=== PATIENT | female | born 1955 | race Caucasian/White ===

== ENCOUNTER 2016-08-19 15:38 | Inpatient (IN) | payer MEDICARE, BC ==
[~2016-08-19] VITALS: Ht 160 cm; Wt 87.1 kg
[2016-08-19 16:00] VITALS: BP 111/69
[2016-08-19] MEDS ORDERED: MAG30ORA PO (16:00)
[2016-08-19] MEDS ORDERED: ACET-868 PO (16:00)
[2016-08-19] MEDS ORDERED: PROG100C3 PO (16:05)
[2016-08-19] MEDS ORDERED: METF500T7 PO (16:05)
[2016-08-19] MEDS ORDERED: ESTR0.5T PO (16:05)
[2016-08-19] MEDS ORDERED: FLUO15CR12 TP (16:05)
[2016-08-19] MEDS ORDERED: MAGN400O6 PO (16:05)
[2016-08-19] MEDS ORDERED: LISI-603 PO (16:05)
[2016-08-19] MEDS ORDERED: TOPI-67 PO (16:05)
[2016-08-19] MEDS ORDERED: IBUP-1481 PO (16:05)
[2016-08-19] MEDS ORDERED: DIAZ5TAB4 PO (16:05)
[2016-08-19] MEDS ORDERED: GABA-532 PO (16:05)
[2016-08-19] MEDS ORDERED: BLOO-668 IN (16:09)
[2016-08-19] MEDS ORDERED: MAGNESIUM HYDROXIDE 30 ML UDC PO PRN (16:30)
[2016-08-19 20:00] VITALS: BP 112/66
[2016-08-19] MEDS: ZOLPIDEM TARTRATE 5 MG TABLET PO PRN (21:19)
[2016-08-20] MEDS: LORAZEPAM 0.5 MG TABLET PO PRN (02:47)
[2016-08-20] MEDS: MAG HYDROX/AL HYDROX/SIMETH 30 ML UDC PO PRN (03:27)
[2016-08-20 08:08] VITALS: BP 130/77
[2016-08-20 08:11] LABS: ALBUMIN 3.7 g/dL (3.4-5.0); BILIRUBIN,TOTAL 0.4 mg/dL (0.2-1.0); CALCIUM, SERUM 8.6 mg/dL (8.5-10.1); CREATININE 1.3 mg/dL (0.6-1.3); POTASSIUM 4.1 mmol/L (3.5-5.1); TOTAL PROTEIN, SERUM 7.4 g/dL (6.4-8.2)
[2016-08-20] MEDS ORDERED: MAG HYDROX/AL HYDROX/SIMETH 30 ML UDC PO PRN (11:00)
[2016-08-20] MEDS ORDERED: MAGNESIUM HYDROXIDE 30 ML UDC PO PRN (11:00)
[2016-08-20] MEDS: OLANZAPINE 5 MG/TAB.RAPDIS PO SCH ×2 (12:27→21:01)
[2016-08-20 15:58] VITALS: BP 131/60
[2016-08-20] MEDS: TOPIRAMATE 25 MG TABLET PO SCH (16:49)
[2016-08-20 19:48] VITALS: BP 93/55
[2016-08-20] MEDS: ZOLPIDEM TARTRATE 5 MG TABLET PO PRN (21:37)
[2016-08-20] MEDS ORDERED: GABAPENTIN 100 MG CAPSULE PO SCH (22:00)
[2016-08-21 08:00] VITALS: BP 110/65
[2016-08-21] MEDS: OLANZAPINE 5 MG/TAB.RAPDIS PO SCH ×2 (08:59→21:14)
[2016-08-21] MEDS: ESCITALOPRAM OXALATE (10 MG) 10 MG TABLET PO SCH (08:59)
[2016-08-21] MEDS: METFORMIN XR 500 MG TAB.SR.24H PO SCH (08:59)
[2016-08-21] MEDS: TOPIRAMATE 25 MG TABLET PO SCH ×2 (08:59→09:03)
[2016-08-21] MEDS: IBUPROFEN 400 MG TABLET PO PRN (09:00)
[2016-08-21] MEDS: GABAPENTIN 100 MG CAPSULE PO SCH ×2 (09:00→21:13)
[2016-08-21] MEDS: LISINOPRIL (20MG) 20 MG TABLET PO SCH (09:01)
[2016-08-21] MEDS: LORAZEPAM 0.5 MG TABLET PO PRN (15:24)
[2016-08-21 16:00] VITALS: BP 120/60
[2016-08-21 19:47] VITALS: BP 99/57
[2016-08-21] MEDS: ZOLPIDEM TARTRATE 5 MG TABLET PO PRN (21:15)
[2016-08-22] MEDS: LORAZEPAM 0.5 MG TABLET PO PRN (03:52)
[2016-08-22] MEDS: ACETAMINOPHEN 325 MG TABLET PO PRN (04:48)
[2016-08-22 08:00] VITALS: BP 142/61
[2016-08-22 08:18] LABS: CHOLESTEROL 153 mg/dL (<200); HDL CHOLESTEROL 37 mg/dL (40-60); LDL 97 mg/dL (0-99); TRIGLYCERIDES 148 mg/dL (30-150)
[2016-08-22] MEDS: ESCITALOPRAM OXALATE (10 MG) 10 MG TABLET PO SCH (08:24)
[2016-08-22] MEDS: METFORMIN XR 500 MG TAB.SR.24H PO SCH (08:24)
[2016-08-22] MEDS: OLANZAPINE 5 MG/TAB.RAPDIS PO SCH ×2 (08:24→21:03)
[2016-08-22] MEDS: GABAPENTIN 100 MG CAPSULE PO SCH ×4 (08:24→21:02)
[2016-08-22] MEDS: TOPIRAMATE 25 MG TABLET PO SCH ×2 (08:25→16:18)
[2016-08-22] MEDS: LISINOPRIL (20MG) 20 MG TABLET PO SCH (08:25)
[2016-08-22 16:00] VITALS: BP 113/75
[2016-08-22 20:09] VITALS: BP 112/66
[2016-08-22] MEDS: ZOLPIDEM TARTRATE 5 MG TABLET PO PRN (21:03)
[2016-08-23] MEDS: LORAZEPAM 0.5 MG TABLET PO PRN ×2 (03:14→21:07)
[2016-08-23] MEDS: ESCITALOPRAM OXALATE (10 MG) 10 MG TABLET PO SCH (08:56)
[2016-08-23] MEDS: OLANZAPINE 5 MG/TAB.RAPDIS PO SCH ×2 (08:56→21:07)
[2016-08-23] MEDS: TOPIRAMATE 25 MG TABLET PO SCH ×2 (08:56→17:20)
[2016-08-23] MEDS: METFORMIN XR 500 MG TAB.SR.24H PO SCH (08:56)
[2016-08-23] MEDS: ESTRADIOL 1 MG TABLET PO SCH (08:58)
[2016-08-23] MEDS: PROGESTERONE 100 MG PO SCH (08:58)
[2016-08-23] MEDS: LISINOPRIL (20MG) 20 MG TABLET PO SCH (08:58)
[2016-08-23] MEDS ORDERED: PROGESTERONE,MICRONIZED 100 MG CAPSULE PO SCH (09:00)
[2016-08-23 09:13] VITALS: BP 104/67
[2016-08-23] MEDS: GABAPENTIN 100 MG CAPSULE PO SCH ×4 (09:19→21:07)
[2016-08-23] MEDS: ACETAMINOPHEN 325 MG TABLET PO PRN (09:19)
[2016-08-23 15:42] VITALS: BP 114/63
[2016-08-23 20:00] VITALS: BP 104/65
[2016-08-23] MEDS: IBUPROFEN 400 MG TABLET PO PRN (21:07)
[2016-08-24 07:23] LABS: BASOPHILS % (AUTO) 0.7 % (0.0-2.0); DIFF TOTAL % 100 %; EOSINOPHILS # (AUTO) 0.1 /CMM (0.0-0.7); EOSINOPHILS % (AUTO) 2.7 % (0.0-6.0); HEMATOCRIT 36 % (33-45); HEMOGLOBIN 11.6 g/dL (11.5-14.8); LYMPHOCYTES # (AUTO) 1.4 /CMM (0.8-4.8); LYMPHOCYTES % (AUTO) 33.7 % (20.0-44.0); MEAN CORPUSCULAR HEMOGLOBIN 30 PG (26.0-33.0); MEAN CORPUSCULAR HGB CONC 33 g/dl (31.0-36.0); MEAN CORPUSCULAR VOLUME 91 fL (82-100); MONOCYTES # (AUTO) 0.3 /CMM (0.1-1.30); MONOCYTES % (AUTO) 8.2 % (2.0-12.0); NEUTROPHILS # (AUTO) 2.3 /CMM (1.8-8.9); NEUTROPHILS % (AUTO) 54.7 % (43.0-81.0); PLATELET COUNT (AUTO) 273 /CMM (150-450); RED BLOOD CELL COUNT(AUTO) 3.89 MIL/uL (4.0-5.2); WHITE BLOOD COUNT (AUTO) 4.2 K/uL (4.3-11.0)
[2016-08-24 07:27] LABS: CALCIUM, SERUM 8.6 mg/dL (8.5-10.1); CREATININE 1.3 mg/dL (0.6-1.3); POTASSIUM 4.5 mmol/L (3.5-5.1)
[2016-08-24 08:00] VITALS: BP 100/62
[2016-08-24] MEDS: ESCITALOPRAM OXALATE (10 MG) 10 MG TABLET PO SCH (08:33)
[2016-08-24] MEDS: TOPIRAMATE 25 MG TABLET PO SCH ×2 (08:34→16:16)
[2016-08-24] MEDS: METFORMIN XR 500 MG TAB.SR.24H PO SCH (08:34)
[2016-08-24] MEDS: LISINOPRIL (20MG) 20 MG TABLET PO SCH (08:34)
[2016-08-24] MEDS: OLANZAPINE 5 MG/TAB.RAPDIS PO SCH ×2 (08:35→20:26)
[2016-08-24] MEDS: GABAPENTIN 100 MG CAPSULE PO SCH ×4 (08:41→20:26)
[2016-08-24] MEDS: PROGESTERONE 100 MG PO SCH (08:41)
[2016-08-24] MEDS: ESTRADIOL 1 MG TABLET PO SCH (08:41)
[2016-08-24] MEDS: MAG HYDROX/AL HYDROX/SIMETH 30 ML UDC PO PRN (15:29)
[2016-08-24 16:07] VITALS: BP 110/52
[2016-08-24] MEDS: LORAZEPAM 0.5 MG TABLET PO PRN (16:16)
[2016-08-24 20:00] VITALS: BP 100/56
[2016-08-24] MEDS: ZOLPIDEM TARTRATE 5 MG TABLET PO PRN (21:43)
[2016-08-24] MEDS: ACETAMINOPHEN 325 MG TABLET PO PRN (21:46)
[2016-08-25 08:00] VITALS: BP 98/61
[2016-08-25] MEDS: PROGESTERONE 100 MG PO SCH (08:58)
[2016-08-25] MEDS: OLANZAPINE 5 MG/TAB.RAPDIS PO SCH ×2 (08:58→20:39)
[2016-08-25] MEDS: METFORMIN XR 500 MG TAB.SR.24H PO SCH (08:58)
[2016-08-25] MEDS: ESCITALOPRAM OXALATE (10 MG) 10 MG TABLET PO SCH (08:58)
[2016-08-25] MEDS: ESTRADIOL 1 MG TABLET PO SCH (08:59)
[2016-08-25] MEDS: LISINOPRIL (20MG) 20 MG TABLET PO SCH (09:00)
[2016-08-25] MEDS: TOPIRAMATE 25 MG TABLET PO SCH ×2 (09:00→17:18)
[2016-08-25] MEDS: GABAPENTIN 100 MG CAPSULE PO SCH ×4 (09:03→20:39)
[2016-08-25 16:00] VITALS: BP 131/66
[2016-08-25 20:00] VITALS: BP 104/48
[2016-08-25] MEDS: ZOLPIDEM TARTRATE 5 MG TABLET PO PRN (21:31)
[2016-08-26 08:00] VITALS: BP 124/70
[2016-08-26] MEDS: METFORMIN XR 500 MG TAB.SR.24H PO SCH (08:52)
[2016-08-26] MEDS: OLANZAPINE 5 MG/TAB.RAPDIS PO SCH (08:52)
[2016-08-26] MEDS: GABAPENTIN 100 MG CAPSULE PO SCH ×2 (08:52→12:25)
[2016-08-26 08:53] VITALS: BP 124/70
[2016-08-26] MEDS: LISINOPRIL (20MG) 20 MG TABLET PO SCH (08:53)
[2016-08-26] MEDS: ESCITALOPRAM OXALATE (10 MG) 10 MG TABLET PO SCH (08:53)
[2016-08-26] MEDS: PROGESTERONE 100 MG PO SCH (08:53)
[2016-08-26] MEDS: TOPIRAMATE 25 MG TABLET PO SCH (08:53)
[2016-08-26] MEDS: ESTRADIOL 1 MG TABLET PO SCH (08:54)
== END 2016-08-26 13:25 | disposition home or self-care (01) | DRG 885 ==
LOC: GPS 15:40
PROVIDERS: ADMIT Psychiatry & Neurology Psychiatry; ATTEND Internal Medicine
DX: F31.5 Bipolar disorder, current episode depressed, severe, with psychotic features (principal); E78.5 Hyperlipidemia, unspecified; Z73.6 Limitation of activities due to disability; E11.9 Type 2 diabetes mellitus without complications; I10 Essential (primary) hypertension; G89.29 Other chronic pain
CPT/HCPCS: 36415; 80048-TC; 80053-TC; 80061-TC; 82962-TC; 85025-TC; 87081-TC